=== PATIENT | female | born 2000 | race Caucasian/White ===

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

== ENCOUNTER 2019-04-05 21:37 | Outpatient (CLI) | payer MEDICAID ==
[~2019-04-05] VITALS: Ht 157.5 cm; Wt 75.5 kg
[~2019-04-05 21:37] MED LIST changes: +OMNICEF 300MG300 MG PO
--- NOTE | 2019-04-05 22:00 | NUR ---
2154- Patient ambulatory to LR4 with mother, Maty. Patient and mother oriented to room and patient into restroom to change into gown and void. 2199- EFM and TOCO on and tracing. Patient presents to L+D with complaints of bloody discharge occuring for "a few weeks". Patient states the bleeding has been bright red, enough to "feel like I need to wear a pad, but don't", and she states her vagina is sensitive and it flores when she wipes, but hasn't noticed any itching. Patient denies contractions or leaking of fluid. Patient states baby is very active. Patient says she is nervous because her mother delivered early at 38wks. Assessment completed. VSS. SVE FT/-2 with white, clumpy, odorless discharge noted. No bloody discharge noted. 2249- See Physician Notification. 2299- Discharge instructions explained in depth to patient and her mother. Encouraged patient to follow up with if she continues to have bloody discharge. She states told her to come to L+D if she noticed bloody discharge when she seen him on 04/03/19 at [facility]. did not mention this in his MD note from that date. Explained to patient that if white, clumpy discharge continues, we recommend Monistat OTC. Questions were encouraged and answered. 2304- Patient and her mother ambulatory off unit to home.
[2019-04-05] MEDS ORDERED: PRENATAL MVI (22:14)
[2019-04-05] MEDS ORDERED: PRILOSEC 20MG20 MG PO (22:15)
[2019-04-05] MEDS ORDERED: NATURAL IRON65 MG (22:15)
[2019-04-05 22:30] VITALS: BP 111/56; PULSE 68; TEMP 98.3
[2019-04-05 23:00] VITALS: BP 117/57; PULSE 84
== END 2019-04-05 23:05 | disposition home or self-care (01) ==
LOC: LDRO 21:37
DX: O46.8X3 Other antepartum hemorrhage, third trimester (principal); Z3A.31 31 weeks gestation of pregnancy

== ENCOUNTER 2019-04-28 17:02 | Outpatient (CLI) | payer MEDICAID ==
--- NOTE | 2019-04-28 17:00 | NUR ---
Rests in bed, alert. Visits with friend at bedside.
--- NOTE | 2019-04-28 17:00 | NUR ---
Presents to labor and delivery. States has had a lot of mucous today. Assessment done, questions offered and answered.
[~2019-04-28 17:02] MED LIST changes: +NATURAL IRON65 MG PO; +PRENATAL MVI; +PRILOSEC 20MG20 MG PO; +TIROSINT50 MC1 PO
[2019-04-28 17:18] VITALS: BP 115/55; PULSE 87; TEMP 98.1
--- NOTE | 2019-04-28 18:30 | NUR ---
Rests in bed, alert. Discharge orders to go home with instructions.
== END 2019-04-28 18:50 | disposition home or self-care (01) ==
LOC: LDRO 17:02 → LDR 17:18 → LDRO 17:18 → LDR 18:50
DX: O26.893 Other specified pregnancy related conditions, third trimester (principal); N89.8 Other specified noninflammatory disorders of vagina; Z3A.35 35 weeks gestation of pregnancy
CPT/HCPCS: OP

== ENCOUNTER 2019-04-29 13:30 | Outpatient (RCR) | payer MEDICAID ==
[2019-04-23 13:35] VITALS: BP 110/60; PULSE 87; TEMP 99.5
--- NOTE | 2019-04-23 13:39 | NUR ---
Pt is a , 34+2, Pt of Dr Garcia in Express unit for IV infusion. Pt denies LOF, VB, or UCs. + FM per mom and heard by this RN. Pt states complicated by anemia and hypothyroidism. States she has groin and hip discomfort. Reassured this is normal in and encouraged Pt to stretch and stay active.
--- NOTE | 2019-04-23 13:55 | NUR ---
1332- EFM and TOCO on and tracing well. 1355- Category I FHR tracing noted. EFM and TOCO off.
--- NOTE | 2019-04-23 15:40 | NUR ---
iron infused, no c/o, sister with pt, int d'cd intact, next appt given to pt for pm.
[2019-04-25 14:10] VITALS: BP 121/78; PULSE 81; TEMP 98.3
[2019-04-25 16:45] VITALS: BP 123/75; PULSE 95; TEMP 98.5
[~2019-04-29] VITALS: Ht 157.5 cm; Wt 80.6 kg
[2019-04-29 14:34] VITALS: BP 109/67; PULSE 91; TEMP 98.8
[2019-04-29 14:40] VITALS: BP 122/65; PULSE 76
--- NOTE | 2019-04-29 14:41 | NUR ---
1414- EFM and TOCO on and tracing. Pt denies VB, LOF, UCs. +FM per Pt and heard on monitor by this RN. 1441- Category I FHR tracing noted. No UCs noted on monitor. EFM and TOCO off.
[2019-04-29 15:40] VITALS: BP 111/76; PULSE 61
[2019-04-29 16:44] VITALS: BP 118/68; PULSE 79
== END 2019-04-29 16:46 | disposition home or self-care (01) ==
LOC: EUO 13:30
DX: Z79.899 Other long term (current) drug therapy (principal)
CPT/HCPCS: J2916; J7050

== ENCOUNTER 2019-05-15 22:38 | Outpatient (CLI) | payer MEDICAID ==
[~2019-05-15] VITALS: Ht 157.5 cm; Wt 83.2 kg
--- NOTE | 2019-05-15 22:45 | NUR ---
G1 at 37 weeks and 3 days arrives to unit ambulatory with complaint of feeling the urge to push. Pt states the urge comes and goes but denies feeling contractions. States she has been having some lower back pain as well. Pt reports good movement, denies LOF or vaginal bleeding. Pt denies headaches, blurry vision, or RUQ pain. Pt oriented to room, bed in low and locked position, call light within reach. US and toco explained and applied. Plan of care reviewed. Admission assessment started. Vital signs obtained. SVE /-3, head felt on exam, membranes intact.
[2019-05-15 23:15] VITALS: BP 129/79; PULSE 90; TEMP 98.3
--- NOTE | 2019-05-16 00:25 | NUR ---
SVE unchanged over 1 hour. Pt agreeable to discharge plan. Discharge instructions reviewed with patient. Labor precautions given. Pt verbalized understanding. Pt seem ambulating off unit with family member.
== END 2019-05-16 00:25 | disposition home or self-care (01) ==
LOC: LDRO 22:38 → LDR 22:45 → LDRO 05-16 00:25
DX: O26.893 Other specified pregnancy related conditions, third trimester (principal); Z3A.37 37 weeks gestation of pregnancy
CPT/HCPCS: OP

== ENCOUNTER 2019-05-19 07:30 | Inpatient (IN) | payer MEDICAID ==
[2019-05-19] VITALS (46 sets, daily range): BP systolic 115–157; BP diastolic 56–92; PULSE 75–125; TEMP 98–98.3
[~2019-05-19] VITALS: Ht 157.5 cm; Wt 83.2 kg
--- NOTE | 2019-05-19 07:30 | NUR ---
0730 G1 at 38 weeks gestation to LDR4 with c/o SROM at 0650. Patient changed into gown and wedged to left side in bed. EFMs explained and applied. FHR 130 bpm and reactive. Irregular CTX per toco and patient reports. VSS. SVE /-3 with large amount of clear fluid noted. Plan of care reviewed with patient and family.
[2019-05-19 08:39] LABS: BASO % 0.2 % (0.0-2.0); EOS # 0.1 (0.0-0.7); EOS % 1.3 % (0-4.0); GRAN # 6.7 (1.4-6.5); GRAN % 67.7 % (42.2-75.2); LYMPH # 2.2 (1.2-3.4); LYMPH % 22.5 % (20.0-51.0); MEAN CELL VOLUME 94 fl (80.0-95.0); MEAN CORPUSCULAR HEMOGLOBIN 31 pg (26.0-32.0); MEAN CORPUSCULAR HGB CONC 33 g/dl (33.0-37.0); MEAN PLATELET VOLUME 10.8 fl (7.4-10.4); MONO # 0.7 (0.1-0.6); PLATELET COUNT 214 K/mm3 (130-400); RED BLOOD COUNT 3.61 M/mm3 (4.10-5.30); REDCELL DISTRIBUTION WIDTH-CV 15.1 % (11.5-14.5)
[2019-05-19 08:52] LABS: HEMATOCRIT 33.8 % (35.0-45.0)
--- NOTE | 2019-05-19 09:30 | NUR ---
Dr. Garcia at bedside. Bedside sono confirms vertex position. SVE /-3. Orders to start pitocin augmentation received. Plan of care reviewed with patient and family.
[2019-05-19 10:09] LABS: TRICYCLIC ANTIDEPRESS URINE NEGATIVE
--- NOTE | 2019-05-19 12:00 | NUR ---
Patient more uncomfortable with contractions, tense and breathing through them. Requesting epidural. SCOOPER notified.
--- NOTE | 2019-05-19 12:45 | NUR ---
1235 STEWART Campbell to room to place epidural. Patient sits upright on the edge of the bed. EFM difficult to monitor in this position, intermittently tracing maternal HR as it coorelated with spO2 tracing. 1245 Test dose administered by STEWART Campbell. See anesthesia record for details.
--- NOTE | 2019-05-19 16:30 | NUR ---
Patient calls out and is feeling increased vaginal pressure. SVE /+1. Dr. Garcia called and updated.
--- NOTE | 2019-05-19 18:00 | NUR ---
1730 - SVE complete/+2. Dr. Garcia notified. 1745 - Patient begins to push with contractions. 1800 - Dr. Garcia to patient room, patient prepped for delivery, continues to push with contractions. 181 - Report given to HARPREET Reid.
--- NOTE | 2019-05-19 19:26 | NUR ---
181 OF MALE INFANT OVER A 2ND DEGREE LAC. 1820 SPONTANOUS DELIVERY OF THE PLACENTA, APGARS 8-9-9. PITOCIN INFUSING WIDE OPEN, FF, CORD SEGMENT OBTAINED AND SENT TO LAB
--- NOTE | 2019-05-19 21:19 | NUR ---
2100 PT UP TO BR, VOIDS 500ML, REVIEWED [facility], PT AMBULATED TO RM 207 TOLERATED WELL.
[2019-05-20] VITALS (7 sets, daily range): BP systolic 107–139; BP diastolic 56–85; PULSE 90–111; TEMP 98.1–99.2
[2019-05-20 07:14] LABS: HEMATOCRIT 27.1 % (35.0-45.0); HEMOGLOBIN 8.9 g/dl (12.0-15.0)
--- NOTE | 2019-05-20 12:07 | NUR ---
Initial visit; Parents thanked Almond Roaster for offering congratulations and God's blessings for their family for the of their son. Almond Roaster thanked family for choosing our hospital.
[2019-05-21 07:30] VITALS: BP 126/76; PULSE 85; TEMP 98.2
[2019-05-21] MEDS ORDERED: IBU600 MG PO (08:09)
--- NOTE | 2019-05-21 14:36 | NUR ---
toll test desk worker received referral from nursing to assess for resources. Worker met with patient, while RN was assisting with nursing instruction. Worker provided resource packet and discussed available transportation from [employer]. Worker provided phone numbers for [facility] transportation. Worker discussed resources (free diapers for 1 year) from [employer]. Patient stated her friend receives this service and patient visits this agency monthly. Patient states she will sign up for diaper program and is enrolled in [facility]. Worker and patient discussed patient's anxiety and depression and worker provided therapist, Opal, phone number and encouraged patient to make an appointment. Patient stated she was not currently medicated and not seeing a therapist. Patient lives with her parents (her mother is unemployed, father is employed). Patient plans discharge home today via friend.
--- NOTE | 2019-05-21 14:40 | NUR ---
1440-Reviewed discharge instructions with patient. Patient verbalized understanding and denies question. Patient aware of when to call doctor. Provided follow up appointment information. 1550-Patient abulatory off unit with friend.
== END 2019-05-21 16:00 | disposition home or self-care (01) | DRG 807 ==
LOC: LDRO 07:30 → LDR 07:30 → OB 08:11 → LDRO 08:11 → LDR 08:11 → OB 21:00
PROVIDERS: ADMIT Obstetrics & Gynecology
PROC: 10E0XZZ Delivery of Products of Conception, External Approach (ICD-10-PCS; principal; 2019-05-19)
PROC: 0KQM0ZZ Repair Perineum Muscle, Open Approach (ICD-10-PCS; 2019-05-19)
DX: O99.344 Other mental disorders complicating childbirth (principal); Z37.0 Single live birth; O99.284 Endocrine, nutritional and metabolic diseases complicating childbirth; F41.9 Anxiety disorder, unspecified; F32.9 Major depressive disorder, single episode, unspecified; O99.02 Anemia complicating childbirth; K21.9 Gastro-esophageal reflux disease without esophagitis; F90.9 Attention-deficit hyperactivity disorder, unspecified type; E03.9 Hypothyroidism, unspecified; D64.9 Anemia, unspecified; O70.1 Second degree perineal laceration during delivery; O99.62 Diseases of the digestive system complicating childbirth; Z3A.38 38 weeks gestation of pregnancy; Z87.440 Personal history of urinary (tract) infections
CPT/HCPCS: J2590; J7120

== ENCOUNTER → 2020-06-03 | Outpatient (CLI) | payer MEDICAID ==
[~2020-06-03] MED LIST changes: +AMOXICILLIN875 MG PO; +IBU600 MG PO
== END ==
LOC: COL.RAD 06:53
DX: M51.36 Other intervertebral disc degeneration, lumbar region (principal)

== ENCOUNTER 2020-06-04 15:21 | Emergency (ER) | payer MEDICAID ==
[~2020-06-04] VITALS: Ht 157.5 cm; Wt 88.2 kg
[~2020-06-04 15:21] MED LIST changes: -AMOXICILLIN875 MG PO
[2020-06-04 16:03] LABS: COLLECTION METHOD CLEAN CATCH
[2020-06-04 16:07] LABS: MUCOUS Present /lpf; PH 6 (5-8); SQUAMOUS EPITHELIAL 0-2 /hpf; URINE APPEARANCE Hazy; URINE BACTERIA Rare /hpf; URINE BILIRUBIN Negative (NEGATIVE); URINE BLOOD Negative (NEGATIVE); URINE COLOR Yellow; URINE GLUCOSE Negative (NEGATIVE); URINE KETONE Negative (NEGATIVE); URINE LEUKOCYTE ESTERASE Negative (NEGATIVE); URINE NITRATE Negative (NEGATIVE); URINE PROTEIN(semi-quant) Negative (NEGATIVE); URINE RBC 0-2 /hpf; URINE UROBILINOGEN Negative (NEGATIVE)
[2020-06-04 16:28] LABS: BASO % 0.2 % (0.0-2.0); EOS # 0.1 (0.0-0.7); EOS % 1.1 % (0-4.0); GRAN # 5.8 (1.4-6.5); GRAN % 72.7 % (42.2-75.2); HEMATOCRIT 39.6 % (37.0-47.0); HEMOGLOBIN 12.5 g/dl (12.5-16.0); LYMPH # 1.6 (1.2-3.4); LYMPH % 20.2 % (20.0-51.0); MEAN CELL VOLUME 86 fl (80.0-100.0); MEAN CORPUSCULAR HEMOGLOBIN 27 pg (27.0-31.0); MEAN CORPUSCULAR HGB CONC 32 g/dl (33.0-37.0); MEAN PLATELET VOLUME 9.9 fl (7.4-10.4); MONO # 0.4 (0.1-0.6); MONO % 5.2 % (1.7-9.3); PLATELET COUNT 383 K/mm3 (130-400); RED BLOOD COUNT 4.61 M/mm3 (4.10-5.30); REDCELL DISTRIBUTION WIDTH-CV 14.6 % (11.5-14.5)
[2020-06-04 17:38] VITALS: BP 124/62; PULSE 74; TEMP 98.9
== END 2020-06-04 17:39 | disposition home or self-care (01) ==
LOC: COL.ER 15:21
PROVIDERS: Family Medicine
DX: G89.29 Other chronic pain (principal); M54.5 Low back pain; D64.9 Anemia, unspecified; Z88.6 Allergy status to analgesic agent
CPT/HCPCS: J1885

== ENCOUNTER 2020-12-19 15:46 | Emergency (ER) | payer MEDICAID ==
[~2020-12-19] VITALS: Ht 157.5 cm; Wt 93.2 kg
[2020-12-19 16:47] VITALS: BP 141/86; PULSE 100; TEMP 98.5
[2020-12-19] MEDS ORDERED: AMOXICILLIN875 MG PO (19:44)
== END 2020-12-19 20:16 | disposition home or self-care (01) ==
LOC: COL.ER 15:46
DX: J32.9 Chronic sinusitis, unspecified (principal); D64.9 Anemia, unspecified; Z20.822 Contact with and (suspected) exposure to COVID-19; Z79.899 Other long term (current) drug therapy

== ENCOUNTER 2021-03-27 13:45 | Emergency (ER) | payer MEDICAID ==
[~2021-03-27] VITALS: Ht 157.5 cm; Wt 109.1 kg
[~2021-03-27 13:45] MED LIST changes: +AMOXICILLIN875 MG PO
[2021-03-27 13:52] VITALS: TEMP 98.1
[2021-03-27 14:52] LABS: BASO % 0.3 % (0.0-2.0); EOS # 0.2 K/mm3 (0.0-0.7); EOS % 2.9 % (0.0-4.0); GRAN # 3.9 K/mm3 (1.4-6.5); HEMATOCRIT 40.2 % (37.0-47.0); HEMOGLOBIN 12.4 g/dl (12.5-16.0); LYMPH # 1.7 K/mm3 (1.2-3.4); LYMPH % 27.7 % (20.0-51.0); MEAN CELL VOLUME 88 fl (80.0-100.0); MEAN CORPUSCULAR HEMOGLOBIN 27 pg (27-31); MEAN CORPUSCULAR HGB CONC 31 g/dl (33.0-37.0); MEAN PLATELET VOLUME 10.4 fl (7.4-10.4); MONO # 0.4 K/mm3 (0.1-0.6); MONO % 6.6 % (1.7-9.3); PLATELET COUNT 354 K/mm3 (130-400); RED BLOOD COUNT 4.56 M/mm3 (4.10-5.30); REDCELL DISTRIBUTION WIDTH-CV 14.9 % (11.5-14.5)
[2021-03-27 15:01] LABS: COLLECTION METHOD CLEAN CATCH
[2021-03-27 15:09] LABS: BILIRUBIN,TOTAL 0.3 mg/dL (0.2-1.2); CALCIUM 9.2 mg/dL (8.4-10.2); CREATININE, serum 0.67 mg/dL (0.57-1.11); POTASSIUM 4.3 mmol/L (3.5-4.5); TOTAL PROTEIN 7.9 gm/dL (6.2-8.1)
[2021-03-27 15:15] LABS: MUCOUS Present (NOT PRESENT); PH 5 (5-8); URINE APPEARANCE Hazy (CLEAR/HAZY); URINE BACTERIA Rare /hpf (NONE SEEN); URINE BILIRUBIN Negative (NEGATIVE); URINE BLOOD 2+ (NEGATIVE); URINE COLOR Yellow (YELLOW); URINE GLUCOSE Negative (NEGATIVE); URINE KETONE Negative (NEGATIVE); URINE LEUKOCYTE ESTERASE Negative (NEGATIVE); URINE NITRATE Negative (NEGATIVE); URINE PROTEIN(semi-quant) Negative (NEGATIVE); URINE UROBILINOGEN Negative (NEGATIVE)
[2021-03-27 16:59] VITALS: BP 123/76; PULSE 85
== END 2021-03-27 16:59 | disposition home or self-care (01) ==
LOC: COL.ER 13:45
PROVIDERS: Physician Assistant
DX: R10.9 Unspecified abdominal pain (principal); R11.0 Nausea; Z32.02 Encounter for pregnancy test, result negative
CPT/HCPCS: J0780; J2405; J7030

== ENCOUNTER 2021-07-29 16:47 | Emergency (ER) | payer MEDICAID ==
[~2021-07-29] VITALS: Ht 157.5 cm; Wt 91.8 kg
[2021-07-29 18:25] LABS: BASO % 0.2 % (0.0-2.0); EOS # 0.1 K/mm3 (0.0-0.7); GRAN # 6.4 K/mm3 (1.4-6.5); GRAN % 69.8 % (42.2-75.2); HEMATOCRIT 38.4 % (37.0-47.0); HEMOGLOBIN 11.7 g/dl (12.5-16.0); LYMPH % 22.1 % (20.0-51.0); MEAN CELL VOLUME 89 fl (80.0-100.0); MEAN CORPUSCULAR HEMOGLOBIN 27 pg (27-31); MEAN CORPUSCULAR HGB CONC 31 g/dl (33.0-37.0); MEAN PLATELET VOLUME 10.1 fl (7.4-10.4); MONO # 0.6 K/mm3 (0.1-0.6); MONO % 6.7 % (1.7-9.3); PLATELET COUNT 374 K/mm3 (130-400); RED BLOOD COUNT 4.32 M/mm3 (4.10-5.30); REDCELL DISTRIBUTION WIDTH-CV 15.6 % (11.5-14.5)
[2021-07-29 18:25] LABS: COLLECTION METHOD CLEAN CATCH
[2021-07-29 18:32] LABS: MUCOUS Present (NOT PRESENT); PH 6 (5-8); SQUAMOUS EPITHELIAL 0-2 /hpf (0-10); URINE APPEARANCE Clear (CLEAR/HAZY); URINE BACTERIA None Seen /hpf (NONE SEEN); URINE BILIRUBIN Negative (NEGATIVE); URINE BLOOD Negative (NEGATIVE); URINE COLOR Yellow (YELLOW); URINE GLUCOSE Negative (NEGATIVE); URINE KETONE Negative (NEGATIVE); URINE LEUKOCYTE ESTERASE Negative (NEGATIVE); URINE NITRATE Negative (NEGATIVE); URINE PROTEIN(semi-quant) Negative (NEGATIVE); URINE RBC 0-2 /hpf (0-2); URINE UROBILINOGEN Negative (NEGATIVE)
[2021-07-29 18:45] LABS: ALBUMIN 3.8 gm/dL (3.5-5.0); BILIRUBIN,TOTAL 0.2 mg/dL (0.2-1.2); CALCIUM 8.8 mg/dL (8.4-10.2); CREATININE, serum 0.61 mg/dL (0.57-1.11); POTASSIUM 3.7 mmol/L (3.5-4.5); TOTAL PROTEIN 7.5 gm/dL (6.2-8.1)
[2021-07-29 20:32] VITALS: BP 123/80; PULSE 81; TEMP 98.8
== END 2021-07-29 20:32 | disposition home or self-care (01) ==
LOC: COL.ER 16:47
PROVIDERS: Nurse Practitioner
DX: O20.9 Hemorrhage in early pregnancy, unspecified (principal); Z3A.01 Less than 8 weeks gestation of pregnancy; Z28.310 Unvaccinated for COVID-19

== ENCOUNTER 2021-08-15 18:58 | Emergency (ER) | payer MEDICAID ==
[~2021-08-15] VITALS: Ht 157.5 cm; Wt 81.8 kg
[2021-08-15 19:03] VITALS: TEMP 97.2
[2021-08-15] MEDS ORDERED: PEPCID 20MG TAB20 MG PO (19:17)
[2021-08-15 19:41] LABS: BASO % 0.1 % (0.0-2.0); GRAN # 12.5 K/mm3 (1.4-6.5); GRAN % 87.4 % (42.2-75.2); HEMATOCRIT 42.4 % (37.0-47.0); HEMOGLOBIN 13.5 g/dl (12.5-16.0); LYMPH # 1.2 K/mm3 (1.2-3.4); LYMPH % 8.4 % (20.0-51.0); MEAN CELL VOLUME 86 fl (80.0-100.0); MEAN CORPUSCULAR HEMOGLOBIN 27 pg (27-31); MEAN CORPUSCULAR HGB CONC 32 g/dl (33.0-37.0); MEAN PLATELET VOLUME 10.7 fl (7.4-10.4); MONO # 0.5 K/mm3 (0.1-0.6); MONO % 3.8 % (1.7-9.3); PLATELET COUNT 379 K/mm3 (130-400); RED BLOOD COUNT 4.95 M/mm3 (4.10-5.30); REDCELL DISTRIBUTION WIDTH-CV 15.4 % (11.5-14.5)
[2021-08-15 19:53] LABS: ALBUMIN 4.2 gm/dL (3.5-5.0); BILIRUBIN,TOTAL 0.4 mg/dL (0.2-1.2); CALCIUM 9.5 mg/dL (8.4-10.2); CREATININE, serum 0.61 mg/dL (0.57-1.11); POTASSIUM 3.7 mmol/L (3.5-4.5); TOTAL PROTEIN 8.4 gm/dL (6.2-8.1)
[2021-08-15] MEDS ORDERED: ZOFRAN ODT4 MG PO (22:04)
[2021-08-15 22:05] VITALS: BP 114/78; PULSE 65
[2021-08-16] MEDS ORDERED: VITAMIN B-6100 MG PO (07:09)
[2021-08-16] MEDS ORDERED: UNISOM25 MG PO (07:09)
[2021-08-16] MEDS ORDERED: PEPCID 20MG TAB20 MG PO (08:39)
== END 2021-08-15 22:05 | disposition home or self-care (01) ==
LOC: COL.ER 18:58
PROVIDERS: Personal Emergency Response Attendant
DX: O99.613 Diseases of the digestive system complicating pregnancy, third trimester (principal); K21.00 Gastro-esophageal reflux disease with esophagitis, without bleeding; Z3A.00 Weeks of gestation of pregnancy not specified; Z28.310 Unvaccinated for COVID-19
CPT/HCPCS: C9113; J2270; J2405; J7030

== ENCOUNTER 2021-12-04 14:40 | Outpatient (CLI) | payer MEDICAID ==
[~2021-12-04] VITALS: Ht 157.5 cm; Wt 95.5 kg
[~2021-12-04 14:40] MED LIST changes: +PEPCID 20MG TAB20 MG PO; +UNISOM25 MG PO; +VITAMIN B-6100 MG PO; +ZOFRAN ODT4 MG PO
--- NOTE | 2021-12-04 15:00 | NUR ---
1500 PT AMBULATORY TO UNIT WITH SUPPORT PERSON. PT REPORTS "3 REAL CONTRACTIONS, NOT TILA XIAO, IN THE LAST TWO DAYS," "LOSING MUCUS PLUG MULTIPLE TIMES IN LAST FEW DAYS," "NOT SURE IF PEEING OR LEAKING FLUID," REPORTS POSITIVE MOVEMENT BUT STATES "THE DOCTOR IS VERY CONCERNED BECAUSE THE BABY IS SO LOW," STATES "I WAS ON THE PHONE WITH MY FIANCE LAST WEEK AND HE THINKS I HAD A SEIZURE WHILE TALKING, I ALSO THREW UP STRAIGHT BLOOD AT THAT TIME, AND HAD BROWN DISCHARGE AT THE SAME TIME." PT ALSO STATES "I HAVE SEVERE PALPITATIONS AND DIZZY SPELLS, MORE THAN IT IS SUPPOSE TO BE DURING ." TOCO TRACING NO CTX AND EFM TRACING CAT 1 AT THIS TIME. DIFFICULTY TRACING EFM DUE TO MATERNAL HABITUS. WILL CONTINUE TO MONITOR.
[2021-12-04 15:10] VITALS: TEMP 99
[2021-12-04 15:29] LABS: COLLECTION METHOD CLEAN CATCH
[2021-12-04 15:30] VITALS: BP 135/63; PULSE 106; TEMP 99
[2021-12-04 15:38] LABS: PH 5.5 (5.0-8.5); SQUAMOUS EPITHELIAL 0-2 /hpf (0-10); URINE APPEARANCE Clear (CLEAR/HAZY); URINE BACTERIA Rare /hpf (NONE SEEN); URINE BLOOD Negative (NEGATIVE); URINE COLOR Yellow (YELLOW); URINE GLUCOSE Negative (NEGATIVE); URINE KETONE Negative (NEGATIVE); URINE NITRATE Negative (NEGATIVE); URINE PROTEIN(semi-quant) Negative (NEGATIVE); URINE RBC 0-2 /hpf (0-2); URINE UROBILINOGEN 0.2 E.U/dL (0.2-1.0); URINE WBC 0-2 /hpf (0-2)
--- NOTE | 2021-12-04 15:40 | NUR ---
AMNIOTEST DONE AT THIS TIME. NEGATIVE FOR AMNIOTIC FLUID.
== END 2021-12-04 16:00 | disposition home or self-care (01) ==
LOC: LDRO 14:40
PROVIDERS: Obstetrics & Gynecology
DX: Z34.90 Encounter for supervision of normal pregnancy, unspecified, unspecified trimester (principal); Z3A.00 Weeks of gestation of pregnancy not specified

== ENCOUNTER 2023-03-25 21:21 | Emergency (ER) | payer MEDICAID ==
[~2023-03-25] VITALS: Ht 157.5 cm; Wt 90.0 kg
[~2023-03-25 21:21] MED LIST changes: +ANTACID500 M1; +EUTHYROX25 MCG PO; +IBU800 M1 PO; +NATURAL IRON65 MG; +ULTRAM 50MG TAB50 MG PO
[2023-03-25 21:29] VITALS: TEMP 99.2
[2023-03-25 22:24] LABS: BASO % 0.3 % (0.0-2.0); EOS # 0.2 K/mm3 (0.0-0.7); EOS % 1.6 % (0.0-4.0); GRAN # 6.8 K/mm3 (1.4-6.5); HEMOGLOBIN 10.5 g/dl (12.5-16.0); LYMPH # 2.2 K/mm3 (1.2-3.4); LYMPH % 22.5 % (20.0-51.0); MEAN CELL VOLUME 76 fl (80.0-100.0); MEAN CORPUSCULAR HEMOGLOBIN 23 pg (27-31); MEAN CORPUSCULAR HGB CONC 31 g/dl (33.0-37.0); MEAN PLATELET VOLUME 10.4 fl (7.4-10.4); MONO # 0.4 K/mm3 (0.1-0.6); MONO % 4.4 % (1.7-9.3); PLATELET COUNT 453 K/mm3 (130-400); RED BLOOD COUNT 4.55 M/mm3 (4.10-5.30); REDCELL DISTRIBUTION WIDTH-CV 16.7 % (11.5-14.5)
[2023-03-25 22:27] LABS: HEMATOCRIT 34.4 % (37.0-47.0)
[2023-03-25 22:31] LABS: INR 1.1 (0.8-3.0)
[2023-03-25 22:34] LABS: PARTIAL THROMBOPLASTIN TIME 36.8 SECONDS (26.0-37.0)
[2023-03-25 22:37] LABS: COLLECTION METHOD CLEAN CATCH
[2023-03-25 22:48] LABS: ALANINE AMINOTRANSFERASE 19 U/L (0-55); ALBUMIN 3.8 gm/dL (3.5-5.0); ALKALINE PHOSPHATASE 94 U/L (40-150); ANION GAP 11 mmol/L (7-16); AST,SGOT 12 U/L (5-34); BILIRUBIN,TOTAL 0.2 mg/dL (0.2-1.2); BLOOD UREA NITROGEN 19 mg/dL (7-19); CALCIUM 9.3 mg/dL (8.4-10.2); CARBON DIOXIDE 20 mmol/L (22-29); CHLORIDE 108 mmol/L (98-107); CREATININE, serum 1.06 mg/dL (0.57-1.11); GLUCOSE 93 mg/dL (70-99); POTASSIUM 3.7 mmol/L (3.5-4.5); SODIUM 139 mmol/L (136-145); TOTAL PROTEIN 7.6 gm/dL (6.2-8.1)
[2023-03-25 22:50] LABS: AMORPHOUS CRYSTAL Present (NOT PRESENT); PH 8.5 (5.0-8.5); SQUAMOUS EPITHELIAL 0-2 /hpf (0-10); URINE APPEARANCE Cloudy (CLEAR/HAZY); URINE BLOOD Negative (NEGATIVE); URINE COLOR Yellow (YELLOW); URINE GLUCOSE Negative (NEGATIVE); URINE KETONE TRACE (NEGATIVE); URINE NITRATE Negative (NEGATIVE); URINE PROTEIN(semi-quant) Negative (NEGATIVE); URINE RBC None Seen /hpf (0-2); URINE UROBILINOGEN 0.2 E.U/dL (0.2-1.0)
[2023-03-25 22:51] LABS: URINE BACTERIA Moderate /hpf (NONE SEEN)
[2023-03-25 22:55] LABS: HCG,QUANTITATIVE < 1 mIU/mL
[2023-03-25 23:29] LABS: C-REACTIVE PROTEIN 0.63 mg/dL (0.00-0.50); MAGNESIUM 2.1 mg/dL (1.6-2.6); THYROID STIMULATING HORMONE 0.748 uIU/mL (0.350-4.940); TROPONIN-I < 0.010 ng/mL (0.00-0.033)
[2023-03-26] MEDS ORDERED: ANTIVERT 25MG25 MG PO (00:20)
[2023-03-26] MEDS ORDERED: ZOFRAN ODT4 MG PO (00:20)
[2023-03-26 00:28] VITALS: BP 121/69; PULSE 84
== END 2023-03-26 00:35 | disposition home or self-care (01) ==
LOC: COL.ER 21:21
PROVIDERS: Emergency Medicine
DX: D50.9 Iron deficiency anemia, unspecified (principal); R55 Syncope and collapse; R00.0 Tachycardia, unspecified
CPT/HCPCS: J7030